=== PATIENT | female | born 1975 | race Caucasian/White ===

== ENCOUNTER 2016-12-13 16:16 | Emergency (ER) | payer BC ==
[~2016-12-13] VITALS: Ht 170.2 cm; Wt 79.4 kg
[~2016-12-13 16:16] MED LIST: ATORVASTATIN CA10 M1 PO; AZELASTINE137 MCG/Ac; CYMBALTA30 MG PO; LEVOCETIRIZINE D5 MG PO; LORTAB 500 MG-71 TAB PO; METFORMIN 500M500 M1 PO; MONTELUKAST SOD10 MG PO; OMEPRAZOLE20 MG PO; STELARA90 MG/ML SC; ZOFRAN ODT4 MG PO; ZOLOFT25 MG PO
--- NOTE | 2016-12-13 16:46 | Emergency Room Report ---
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 N Clinical Suspician of Infection? N Mental Status: 1 - Regular (Normal Baseline) Sepsis Risk:Low Sepsis Risk Have you (or family members/close friends) recently traveled outside the [place]? N If Yes, where/when: Have you had exposure to infectious disease within the past month? TB? Other? Specify: Comment The patient complains of pain in her LEFT arm and neck and LEFT upper chest. Symptoms started at 1:30 PM. She saw a nurse at work and was given 4 baby aspirin at about 2 and the symptoms subsided to a large extent, but are still present. No nausea or diaphoresis. She feels hot. She is normally cold natured. She says sometimes she feels like she can't get a deep enough breath, but is not short of air. She has had the same symptoms off and on for more than a year. She gets it at least once a week, she says she has gotten it twice this week. It usually lasts about an hour. She has attributed it to physical activity and rowing exercise, she says it usually hurts a couple of days after she does that. She says that she was seen in the emergency department for this over a year ago and was referred to Dr. Trevizo for follow-up. She saw him and had an echocardiogram and a stress test. She was started on blood pressure medication and told to lose weight. She was started on a baby aspirin at night. Since then she has had bariatric surgery and has lost 70 pounds, has been able to be taken off of blood pressure medication. ALLERGIES Coded Allergies: alprazolam (From XANAX) (Mild, 12/13/16) trazodone (Mild, 12/13/16) Uncoded Allergies: DURACEFT (Mild, 12/13/16) SURGICAL TAPE (Mild, 12/13/16) Home Medications Active Scripts Ondansetron (Zofran 4MG Odt) 4 MG PO Q6HP PRN NAUSEA AND VOMITING #20 TAB Prov: 02/10/15 Reported Medications Ustekinumab (Stelara) 90 MG SC [id number] #1 Metformin HCl (Metformin) 500 MG PO BID #270 AZELASTINE HCL (Azelastine HCl) 137 MCG NA PRN UNKNOWN #30 Atorvastatin Calcium 10 MG PO QHS #90 Montelukast Sodium 10 MG PO DAILY #90 Sertraline Hcl (Zoloft 25MG) 25 MG PO DAILY DULOXETINE HCL (Cymbalta 30MG) 30 MG PO DAILY LEVOCETIRIZINE DIHYDROCHLORIDE (Levocetirizine Dihydrochloride) 5 MG PO DAILY #90 Omeprazole (Omeprazole 20MG) 20 MG PO DAILY #30 History Medical History General CAD? No Angina: No CO: No Hypertension? No Hyperlipidemia? Yes CHF? No DVT? No PE? No COPD? No Asthma? Yes Anemia? No GERD? No Gastric ulcers? No GI Bleed? No Hernia? No Thyroid Problems? No Hypothyroidism? No CVA? No Seizures? No Diabetes? No Insulin Dependent: No Insulin Pump: No Home FSBS? No Renal Insuffiency? No End Stage Renal Disease? No UTI? Yes Stones? Yes BPH? No GB Disease: Yes Nephritic Syndrome? No Asplenia? No Hepatitis? No Sickle Cell Disease? No Arthritis? No Migraines? No Cataracts? No Glaucoma? No MRSA? No HIV? No TB? No Anxiety? No Depression? No Cancer? No More? Yes Additional hx: POLYCYSTIC OVARIAN SYNDROME. 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 LMP N/A Family History Family Hx Diabetes No CAD No Hypertension Yes Hyperlipidemia No Cancer No TB No Social History Smoking Hx Smoker: Never Smoker Tobacco: No Type N/A Alcohol Alcohol: No Review of Systems All Other Systems Reviewed and Negative Constitutional see HPI, denies diaphoresis Respiratory see HPI, denies shortness of breath Cardiovascular chest pain Gastrointestinal denies nausea, denies vomiting Musculoskeletal see HPI Physical Exam Vital Signs Vital Signs Date Time Temp Pulse Resp B/P Pulse O2 O2 Flow FiO2 Ox Delivery Rate 12/13 1735 62 18 103/65 97 12/13 1639 97.8 68 18 133/88 98 General Appearance no apparent distress Eye Exam - bilateral eye normal exam, bilateral eye PERRL, bilateral eye EOMI Ear, Nose, Throat hearing grossly normal, normal ENT inspection Neck normal inspection, non-tender, supple, full range of motion, negative Spurling Respiratory Status Yes: trachea midline, chest symmetrical, non tender chest. No: respiratory distress. Lung Sounds bilateral: normal breath sounds, lungs clear. Cardiovascular normal exam, regular rate/rhythm, no peripheral edema, no gallop, no JVD, no murmur, no rub, normal peripheral pulses Peripheral Pulses Pulses normal Yes Gastrointestinal normal bowel sounds, normal exam, non tender, soft, no organomegaly Extremities non-tender, normal range of motion, normal inspection Neurologic alert, automat watcher II-XII nml as tested, normal exam, no motor/sensory deficits, oriented x 3 Mental status normal mood/affect Skin intact, normal color, warm/dry Medical Decision Making LABS/Meds/Orders Pt receiving controlled substance in ED? No Results/Orders Laboratory Tests 12/13/16 1638: Sodium 135 L, Potassium 4.0, Chloride 100, Carbon Dioxide 29, BUN 24 H, Creatinine 0.7, Estimated Creat Clear 133, Estimated GFR (MDRD) 92, Glucose 89, Calcium 9.3, Total Bilirubin 0.5, AST 17, ALT 29, Alkaline Phosphatase 77, Creatine Kinase 63, CK-MB (CK-2) Rel Index 0.8, CK and CKMB Interp < 0.5, Troponin I < 0.02, Total Protein 8.1, Albumin 4.4, Globulin 3.7 H, Albumin/ Globulin Ratio 1.2, WBC 8.8, RBC 4.67, Hgb 14.5, Hct 42.9, MCV 91.9, RDW 12.9, Plt Count 260, MPV 7.2 L, Gran % 51.7, Gran # 4.5, Lymphocytes % 40.9, Monocytes % 4.6, Eosinophils % 2.4, Basophils % 0.3, Lymphocytes # 3.6, Monocytes # 0.4, Eosinophils # 0.2, Basophils # 0.0, PUBS MCHC 33.7, MCH 31.0 Current Medication Orders Sig/Iraj Start time Last Medication Dose Route Stop Time Status Admin Sodium Chloride 10 ML PRN PRN 12/13 1645 AC IV 12/14 1637 Orders Procedure Date/time Status TROPONIN I 12/13 1900 Active ELECTROCARDIOGRAM REQUEST 12/13 1637 Active CHEST(2 VIEWS-NOT PORTABLE) 12/13 1637 Active IV SALINE LOCK 12/13 1637 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 No infiltrate, pneumothorax, pleural effusion, or wide mediastinum. Progress - 5:40 PM: The patient had indicated to me twice that she was willing to stay for a second troponin, as recommended by me. However, she has now called the nurse into the room and stated that she wanted to sign out. Departure Departure Disposition Against Medical Advice Clinical Impression Primary Impression: Atypical chest pain Secondary Impressions: Left arm pain, Neck pain Condition STABLE Referrals Marcel DEL TORO,Jeanmarie Fregoso (Family) Patient Instructions DI for Atypical Chest Pain Additional Instructions Additional instructions for CHEST PAIN: See your physician as soon as possible for further evaluation. Return immediately if worsening chest pain, vomiting, shortness of breath, fever, coughing of blood. ED Critical Care Critical Care No
[2016-12-13 16:53] LABS: HEMOGLOBIN 14.5 g/dL (12.2-16.2); LYMPH # 3.6 K/mm3 (0.7-4.5); LYMPH % 40.9 % (10-50.0)
[2016-12-13 17:16] LABS: BUN 24 mg/dL (7-18)
[2016-12-13 17:18] LABS: GFR (ESTIMATED) 92 ML/MIN (59-)
[2016-12-13 17:45] VITALS: BP 103/65
--- NOTE | 2016-12-14 06:45 | RADIOLOGY REPORT PS360 ---
CHEST(2 VIEWS-NOT PORTABLE) HISTORY: CHEST PAIN ORDERING PHYSICIAN: Jose Garza MD PATIENT AGE: 41 years COMPARISON: None available FINDINGS: Mild cardiomegaly without failure.. The lungs are clear without infiltrates, suspicious nodules, or pleural effusions. No acute bony abnormalities. IMPRESSION: Borderline cardiomegaly otherwise negative with no significant change from 12/26/2015
== END 2016-12-13 17:45 | disposition left against medical advice (07) ==
LOC: UTC 16:16 → ER 16:20 → UTC 16:20 → ER 17:45
PROVIDERS: Emergency Medicine
DX: R07.89 Other chest pain (principal); Z88.6 Allergy status to analgesic agent; Z79.84 Long term (current) use of oral hypoglycemic drugs; Z79.899 Other long term (current) drug therapy; E78.5 Hyperlipidemia, unspecified; J45.909 Unspecified asthma, uncomplicated; E28.2 Polycystic ovarian syndrome